=== PATIENT | female | born 1970 | race Caucasian/White ===

== ENCOUNTER 2018-05-06 08:43 | Emergency (ER) | payer BC ==
--- OUTSIDE RECORDS SUMMARY | 2018-05-06 08:47 | XMS REPORT ---
:1970 External Reference #:[id number] Author Organization [employer]. Address [address] [place] [address] [place] [address] Phone [phone] Care Team Providers Name Role Phone Blas Rivear MD Primary Care Physician Unavailable Payers Type Date Identification Numbers Payment Provider Subscriber Commercial Effective: Policy Number: BS Facets Jamel Lee 2011 [id number] PayID: [id number] [address] [address] [place] [address] Problems Date Description Provider Status Onset: 05/10/2017 Localized, primary osteoarthritis Jennifer Sanford M.D. Active Onset: 05/10/2017 Derangement of knee Jennifer Sanford M.D. Active Family History Date Family Member(s) Problem(s) Comments General Diabetes General Hypertension Social History Type Date Description Comments Marital Status Lives With Occupation Currently Working Cigarette Use Never Smoked Cigarettes ETOH Use Occasionally consumes alcohol Smoking Patient has never smoked Recreational Drug Use Denies Drug Use Daily Caffeine Consumes on average 1 cup of regular coffee per day Exercise Type/Frequency Exercises regularly Allergies, Adverse Reactions, Alerts Date Description Reaction Status Severity Comments 05/10/2017 NKDA active Medications Medication Date Status Form Strength Qnty SIG Indications Ordering Provider Prilosec OTC 00/00/ Active Tablets 20mg 1 by mouth Unknown 0000 DR every day Tylenol PM 00/00/ Active Tablets take as Unknown 0000 prescribed on bottle as needed pain Meloxicam 00/00/ Active Tablets 7.5mg take one tab Unknown 0000 daily as needed for pain, avoid other nsaids No Active 06/03/ Hx Unknown Medications 2016 - 2016 No Active 09/22/ Hx Unknown Medications 2016 - 2016 Meloxicam Hx Tablets 15mg 30tabs 1 by mouth M17.0 Jennifer 2016 - every day Juvenal, MCorinaDCorina 2016 Aleve / Hx Unknown - 2017 Meloxicam / Hx Tablets 15mg 30tabs 1 by mouth Jennifer 0000 - every day Juvenal, MCorinaDCorina 2017 Aleve / Hx Unknown - 2017 Medications Administered in Office Medication Date Status Form Strength Qnty SIG Indications Ordering Provider Depomedrol Administered Injection Jennifer 40MG Sonia Sanford M.D. Depomedrol Administered Injection Jennifer 40MG 018 Kem Sanford Depomedrol Administered Injection Jennifer 40MG 017 Kem Sanford Depomedrol Administered Injection Jennifer 40MG 017 Kem Sanford Vital Signs Date Vital Result Comment 04/28/2018 Height 63 inches 5'3" Weight 170.00 lb Heart Rate 70 /min BP Systolic 132 mmHg BP Diastolic 74 mmHg Respiratory Rate 12 /min Pain Level 2 BMI (Body Mass Index) 30.1 kg/m2 03/17/2018 Height 63 inches 5'3" Weight 170.00 lb BP Systolic 126 mmHg BP Diastolic 80 mmHg Body Temperature 98.6 F BMI (Body Mass Index) 30.1 kg/m2 01/03/2018 Height 63 inches 5'3" Weight 170.00 lb BP Systolic 126 mmHg BP Diastolic 80 mmHg Body Temperature 98.3 F BMI (Body Mass Index) 30.1 kg/m2 08/26/2017 Height 63 inches 5'3" Weight 176.00 lb w/ shoes Heart Rate 68 /min reg BP Systolic Sitting 130 mmHg Rue, reg cuff BP Diastolic Sitting 94 mmHg Rue, reg cuff Respiratory Rate 16 /min O2 % BldC Oximetry 99 % on Ra BMI (Body Mass Index) 31.2 kg/m2 Neck Circumference in inches 14 06/03/2017 Height 63 inches 5'3" Weight 170.00 lb Heart Rate 60 /min BP Systolic 124 mmHg BP Diastolic 81 mmHg Respiratory Rate 16 /min Body Temperature 97.2 F BMI (Body Mass Index) 30.1 kg/m2 05/10/2017 Height 63 inches 5'3" Weight 170.00 lb Heart Rate 72 /min BP Systolic 115 mmHg BP Diastolic 83 mmHg Body Temperature 97.8 F Pain Level 3 BMI (Body Mass Index) 30.1 kg/m2 Results Description No Information Procedures Date CPT Code Description Status 04/28/2018 Inject/Drain Joint/Bursa Major W/O US Completed 01/03/2018 Inject/Drain Joint/Bursa Major W/O US Completed 09/04/2017 83433 Sleep Study Unattended,HRT Rate,Oxygen Sat,Resp Completed Effort/Airflow 05/10/2017 Inject/Drain Joint/Bursa Major W/O US Completed 08/24/2013 57390 Holter Monitoring 24 HR New Completed Encounters Type Date Location Provider CPT E/M Dx Office Visit 03/17/2018 [facility] Jennifer Sanford M.D. 89435 M25.561 3:[facility] M25.461 M17.11 Office Visit 08/26/2017 9:30a [facility] [place] [address] R06.83 Services [facility] [employer] R40.0 R51 R12 G25.81 Office Visit 06/03/2017 10:15a [facility] Jennifer Sanford M.D. 87282 M25.562 [facility] M25.561 M25.461 M25.462 M17.0 Office Visit 05/10/2017 1:00p [facility] Jennifer Sanford M.D. 54859 M25.562 [facility] M25.561 M25.461 M25.462 M17.0 M22.2x1 M22.2x2 Plan of Care Future Appointment(s):05/05/2018 9:00 am - Jennifer Sanford M.D. at [facility]05/12/2018 9:15 am - Jennifer Sanford M.D. at [facility]04/28/2018 - Jennifer Sanford M.D.M25.561 Pain in right kneeFollow up:Follow up: 1 weekM25.461 Effusion, right kneeM17.11 Unilateral primary osteoarthritis, right knee
--- OUTSIDE RECORDS SUMMARY | 2018-05-06 08:47 | XMS REPORT ---
:1970 External Reference #:[id number] Author Organization [employer] Address [address] [place] [address] [place] [address] Phone [phone] Care Team Providers Name Role Phone Blas Rivera MD Primary Care Physician Unavailable Payers Type Date Identification Numbers Payment Provider Subscriber Commercial Effective: Policy Number: BS Facets Jamel Lee 2011 [id number] PayID: [id number] [address] [address] [place] [address] Problems Date Description Provider Status Onset: 05/10/2017 [...] Juvenal, MCorinaDCorina 2016 Aleve / Hx Unknown 0000 - 2017 Meloxicam / Hx Tablets 15mg 30tabs 1 by mouth Jennifer 0000 - every day Juvenal MVictor Manuel 2017 Aleve / Hx Unknown - 2017 Medications Administered in Office Medication Date Status Form Strength Qnty SIG Indications Ordering Provider Synvisc Or Administered Injection Jennifer Synvisc-One Sonia Sanford M.D. Injection 1 MG Depomedrol Administered Injection Jennifer 40MG Sonia Sanford M.D. Depomedrol Administered Injection Jennifer 40MG Sonia Sanford M.D. Depomedrol Administered Injection Jennifer 40MG 017 Kem Sanford Depomedrol Administered Injection Jennifer 40MG 017 Kem Sanford Vital Signs Date Vital Result Comment 05/05/2018 Height 63 inches 5'3" Heart Rate 64 /min BP Systolic Sitting 102 mmHg BP Diastolic Sitting 78 mmHg Respiratory Rate 16 /min Body Temperature 97.5 F Pain Level 1 04/28/2018 Height 63 inches 5'3" Weight 170.00 [...] Information Procedures Date CPT Code Description Status 05/05/2018 Inject/Drain Joint/Bursa Major W/O US Completed 04/28/2018 Inject/Drain Joint/Bursa Major W/O US Completed 01/03/2018 Inject/Drain Joint/Bursa Major W/O US Completed 09/04/2017 80754 Sleep Study Unattended,HRT Rate,Oxygen Sat,Resp Completed Effort/Airflow 05/10/2017 Inject/Drain Joint/Bursa Major W/O US Completed 08/24/2013 94178 Holter Monitoring 24 HR New Completed Encounters Type Date Location Provider CPT E/M Dx Office Visit 03/17/2018 [facility] Jennifer Sanford M.D. 18888 M25.561 3:15p [facility] M25.461 M17.11 Office Visit 08/26/2017 9:30a [facility] [place] [address] R06.83 Services [facility] R40.0 R51 R12 G25.81 Office Visit 06/03/2017 10:15a [facility] Jennifer Sanford M.D. 56043 M25.562 [facility] M25.561 M25.461 M25.462 M17.0 Office Visit 05/10/2017 1:00p [facility] Jennifer Sanford M.D. 98342 M25.562 [facility] M25.561 M25.461 M25.462 M17.0 M22.2x1 M22.2x2 Plan of Care Future Appointment(s):05/12/2018 9:15 [facility]2018 - Jennifer Sanford M.D.M25.561 Pain in right kneeFollow up:Follow up: 1 weekM25.461 Effusion, right kneeM17.11 Unilateral primary osteoarthritis, right knee
[2018-05-06 08:54] VITALS: BP 136/93
--- NOTE | 2018-05-06 09:20 | UC ---
Lower Extremity/Ankle HPI - HPI Summary HPI Summary: This patient is a 48 year old F presenting to [facility] with a chief complaint of left foot/heel pain that began 9 days ago. The patient rates the pain 6/10 in severity. She states she was at an exercise class and as she stepped she immediately felt pain. She was on a flat surface and was wearing sneakers. She has been icing it and taking advil 600mg for pain. 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 She has a willow analyst appointment in a month but feels if though she should not wait. She sees Dr. Sanford for osteoarthritis of her right knee. She has not taken ibuprofen today. Pt concerned she may have broken foot and thought she should get an xray. NKDA Patients medications reviewed this visit. - History of Current Complaint Chief Complaint: UCLowerExtremity Stated Complaint: L FOOT INJURY Time Seen by Provider: 05/06/18 09:09 Hx Obtained From: Patient Hx Last Menstrual Period: 04/25/18 ?: No Onset/Duration: Lasting Days - 9, Still Present Severity Initially: Moderate Severity Currently: Moderate Pain Intensity: 6 Pain Scale Used: 0-10 Numeric Aggravating Factor(s): Standing Alleviating Factor(s): Ice, OTC Meds Able to Bear Weight: Yes - Allergies/Home Medications Allergies/Adverse Reactions: Allergies Allergy/AdvReac Type Severity Reaction Status Date / Time No Known Allergies Allergy Verified 05/06/18 08:54 Home Medications: Home Medications Acetaminophen/Diphenhydramine [Acetaminophen Pm Caplet] 1 tab PO ONCE PRN [History Confirmed 05/06/18] Magnesium 2 tab PO DAILY 05/06/18 [History Confirmed 05/06/18] Meloxicam 7.5 mg PO DAILY 05/06/18 [History Confirmed 05/06/18] Omeprazole Magnesium [Prilosec] 2.5 mg PO DAILY 05/06/18 [History Confirmed ] Rutin/Hesp/Bioflav/C/Rsorkh022 [Bioflex Tablet] 1 tab PO DAILY 05/06/18 [ History Confirmed 05/06/18] PMH/Surg Hx/FS Hx/Imm Hx - Additional Past Medical History Additional PMH: osteoarthritis Previously Healthy: Yes GI/ History: Gastroesophageal Reflux - Surgical History Surgical History: Yes Surgery Procedure, Year, and Place: tonsilectomy, bunionectomy - Family History Known Family History: Positive: Other - non contributory Negative: Seizure Disorder - Social History Occupation: Employed Full-time Alcohol Use: Weekly Substance Use Type: None Smoking Status (MU): Never Smoked Tobacco Review of Systems Constitutional: Negative - fever Musculoskeletal: Other: - left heel pain All Other Systems Reviewed And Are Negative: Yes Physical Exam - Summary Physical Exam Summary: Vital Signs Reviewed: Yes A+Ox3, no distress Eyes: Conjunctiva Clear ENT: Hearing grossly normal neck: supple Respiratory: Positive: No respiratory distress, No accessory muscle use Cardiovascular: skin color reflect adequate perfusion Musculoskeletal Exam: + SLE + flex/ext knee + flex/ext ankle with pain in lateral aspect of ankle and foot + TTP anterior lateral malleolus and base 5th MT. no crepitus + inversion/eversion with mild discomfort Neurological: Positive: Alert, + gross sensation throughout foot Psychological: Positive: Normal Response To Family Skin: Positive: no rash, no ecchymosis no edema Triage Information Reviewed: Yes Vital Signs: Initial Vital Signs Temp 98.1 F 05/06/18 08:48 Pulse 73 05/06/18 08:48 Resp 18 05/06/18 08:48 BP 136/93 05/06/18 08:48 Pulse Ox 98 05/06/18 08:48 Diagnostics - Radiology Foot Xray Radiology Interpretation Completed By: Radiologist - MILD DEGENERATIVE CHANGES. NO ACUTE OSSEOUS INJURY. IF SYMPTOMS PERSIST, RECOMMEND REPEAT IMAGING. Dr Cantu has reviewed this report Ankle Xray Radiology Interpretation Completed By: Radiologist - MILD DEGENERATIVE CHANGES. NO ACUTE OSSEOUS INJURY. IF SYMPTOMS PERSIST, RECOMMEND REPEAT IMAGING. Dr Cantu has reviewed this report Re-Evaluation - Re-Evaluation First Eval Change: Improved - reviewed imaging with pt placed cam walker - pt states provided good support and pain control pt has appt with ortho on Saturday - will discuss foot at this appt motrin/apap ice elevate Lower Extremity Course/Dx - Course Course Of Treatment: Patient with discomfort on the lateral aspect of her left foot after stepping during exercise class. Patient states she continues to have discomfort at the base of the fifth metatarsal as well as on the left ankle. Patient states she's taken Motrin and use ice. Patient states she works on her feet standing all day which makes the pain worse. He shouldn't has an appointment with podiatry but wanted to get it checked to make sure there was no fracture. Patient is followed by Dr. Sanford for her knee and is scheduled for an injection next week. With the doctor placed yesterday and did not think to mention her foot. We'll check imaging, will give Motrin. pt comfortable and in agreement with plan - Differential Dx/Diagnosis Provider Diagnoses: foot sprain Discharge - Sign-Out/Discharge Documenting (check all that apply): Patient Departure, Post-Discharge Follow Up All imaging exams completed and their final reports reviewed: Yes - Discharge Plan Condition: Stable Disposition: HOME Patient Education Materials: Foot Sprain (ED) Referrals: [facility] [Provider Group] Jennifer Sanford MD [Medical Doctor] - Additional Instructions: -wear neno wrap for comfort and support -apply ice (20 min at a time) every 2-3 hours for the next 2 days -use walking boot to help support your foot and ankle -Elevate your leg - this will help with swelling and pain - Alternate ibuprofen (advil, Motrin) 600mg and tylenol every 3 hours for pain. Take with food. Do NOT take for more than 4-5 days - If you are wearing sneakers, it is recommended you use an neno wrap to support your foot and ankle - You have been given a referral to the sports medicine clinic. It is recommended you contact this clinic or your orthopedic provider to schedule a follow-up appointment this week if you have ongoing pain. If your pain is well controlled in the boot - okay to wait until Saturday's appointment with Dr. Sanford. - Billing Disposition and Condition Condition: STABLE Disposition: Home - Attestation Statements Document Initiated by Siomarae: Yes Documenting Scribe: Jas Doe Provider For Whom Mary Jane is Documenting (Include Credential): Kyra Cantu MD Scribe Attestation: Jas Villatoro , scribed for Kyra Cantu MD on 05/06/18 at 1005. Scribe Documentation Reviewed: Yes Provider Attestation: The documentation as recorded by the Jas powers accurately reflects the service I personally performed and the decisions made by me, Kyra Cantu MD
[2018-05-06] MEDS ORDERED: Ibuprofen TAB* 600 MG PO ONE (09:32)
--- NOTE | 2018-05-06 09:47 | RAD ---
HISTORY: pain base 5th, lateral malleolus COMPARISONS: None VIEWS: 6 , Frontal, lateral, and oblique views of the left foot and ankle FINDINGS: BONE DENSITY: Normal. BONES: There is no displaced fracture. There is a plantar calcaneal enthesophyte. JOINTS: There is osteoarthritis of the first MTP joint. ALIGNMENT: There is mild hallux valgus. SOFT TISSUES: Unremarkable. OTHER FINDINGS: None. IMPRESSION: MILD DEGENERATIVE CHANGES. NO ACUTE OSSEOUS INJURY. IF SYMPTOMS PERSIST, RECOMMEND REPEAT IMAGING.
== END 2018-05-06 10:11 | disposition home or self-care (01) ==
LOC: UCEAST 08:43
DX: S93.602A Unspecified sprain of left foot, initial encounter (principal); X50.0XXA Overexertion from strenuous movement or load, initial encounter; Y93.A9 Activity, other involving cardiorespiratory exercise; Y92.9 Unspecified place or not applicable; M19.072 Primary osteoarthritis, left ankle and foot; M17.11 Unilateral primary osteoarthritis, right knee
CPT/HCPCS: 99212; A9270-GY; G0463

== ENCOUNTER 2019-05-09 19:23 | Emergency (ER) | payer BC ==
[2019-05-09] MEDS ORDERED: methylPREDNISolone 125 MG* 2 ML VIAL IM ONE (19:34)
--- NOTE | 2019-05-09 19:35 | UC ---
Skin Complaint HPI - HPI Summary HPI Summary: Bit by a bee 1.5 hours ago on the lower lip, with immediate onset of swelling. Took oral benadryl about 45 mintues ago. No diffculty breathing and no tongue swelling Within the past month was treated with antibiotics for a cellulitis related to a possible spider bite. - History of Current Complaint Time Seen by Provider: 05/09/19 19:32 Stated Complaint: BEE STINGS Hx Obtained From: Patient Hx Last Menstrual Period: 04/25/18 Onset/Duration: Sudden Onset, Lasting Hours - 2 Skin Exposure Onset/Duration: Hours Ago - 1.5 Onset Severity: Moderate Current Severity: Moderate Location: Discrete - lower lip Aggravating Factor(s): OTC Meds - took benadryl 50mg soon after sting. Alleviating Factor(s): OTC Meds Associated Signs & Symptoms: Negative: Nausea, Vomiting, Difficulty Breathing Related History: Insect Bite/Sting, Possible Reaction to: Insect - Allergy/Home Medications Allergies/Adverse Reactions: Allergies Allergy/AdvReac Type Severity Reaction Status Date / Time No Known Allergies Allergy Verified 05/09/19 19:36 Home Medications: Home Medications diPHENhydraMINE PO* [Benadryl PO 25 MG TAB*] 50 mg PO ONCE PRN 05/09/19 [ History Confirmed 05/09/19] PMH/Surg Hx/FS Hx/Imm Hx Previously Healthy: Yes GI/ History: Gastroesophageal Reflux - Surgical History Surgical History: Yes Surgery Procedure, Year, and Place: tonsilectomy, LEFT FOOT bunionectomy - Family History Known Family History: Positive: Other - no hx of severe allergic reaction, Non- Contributory Negative: Seizure Disorder - Social History Occupation: Employed Full-time Lives: With Family Alcohol Use: Weekly Substance Use Type: None Smoking Status (MU): Never Smoked Tobacco Review of Systems All Other Systems Reviewed And Are Negative: Yes Constitutional: Positive: Negative Skin: Positive: Rash - swelling lower lip and chin Eyes: Positive: Negative Respiratory: Negative: Shortness Of Breath, Cough Cardiovascular: Negative: Palpitations, Chest Pain Gastrointestinal: Negative: Abdominal Pain, Vomiting, Nausea Genitourinary: Positive: Negative Motor: Positive: Negative Neurovascular: Positive: Negative Musculoskeletal: Positive: Negative Neurological: Positive: Negative Physical Exam Triage Information Reviewed: Yes Appearance: Well-Appearing, Well-Nourished, Pain Distress - mild to moderate. Eyes: Positive: Conjunctiva Inflamed - (has been crying) ENT Exam: Other - lower lip with marked swelling, with tense induration of the soft tissue of the chin. ENT: Positive: Pharynx normal Neck: Positive: Supple, Nontender, No Lymphadenopathy Respiratory: Positive: Lungs clear, Normal breath sounds Cardiovascular: Positive: RRR, No Murmur Re-Evaluation - Re-Evaluation First Eval Re-Evaluation Time: 20:25 - lower lip and chin swelling decreased Change: Improved Course/Dx - Course Course Of Treatment: prednisone, continue regular use of benadryl and ice. - Differential Diagnoses - Skin Complaint Differential Diagnoses: Angioedema, Local Allergic Reaction, Urticaria - Diagnoses Provider Diagnosis: Allergic reaction to bee sting Discharge ED - Sign-Out/Discharge Documenting (check all that apply): Patient Departure All imaging exams completed and their final reports reviewed: No Studies - Discharge Plan Condition: Stable Disposition: HOME Prescriptions: predniSONE [Prednisone 20 MG TAB] 2 tab PO DAILY #10 tablet Patient Education Materials: Insect Bite or Sting (ED) Referrals: Blas Rivera MD [Primary Care Provider] - Additional Instructions: You have a strong local reaction to a sting. Take benadryl 50mg before bed tonight, and 25mg up to 4 times tomorrow. Begin use of prednisone tomorrow with food. Five days have been prescribed, but if the swelling resolves quickly you can discontinue use. If you have any difficulty breathing, please go to the emergency room. - Billing Disposition and Condition Condition: STABLE Disposition: Home
[2019-05-09 19:37] VITALS: BP 144/86
== END 2019-05-09 20:52 | disposition home or self-care (01) ==
LOC: UCEAST 19:23
DX: T63.441A Toxic effect of venom of bees, accidental (unintentional), initial encounter (principal); Y92.9 Unspecified place or not applicable; K21.9 Gastro-esophageal reflux disease without esophagitis
CPT/HCPCS: 99212; G0463; J2930